=== PATIENT | female | born 1995 | race Caucasian/White ===

== ENCOUNTER 2021-12-18 11:03 | Inpatient (IN) | payer MEDICAID ==
[~2021-12-18] VITALS: Ht 175.3 cm; Wt 78.0 kg
[2021-12-18] MEDS ORDERED: DiphenhydrAMINE HCL 50 MG/ML VIAL IM ONE (13:15)
[2021-12-18] MEDS ORDERED: LORazepam 2 MG/ML VIAL IM ONE (13:15)
[2021-12-18] MEDS ORDERED: HALOPERIDOL LACTATE 5 MG/ML VIAL IM ONE (13:15)
[2021-12-18] MEDS ORDERED: ZOLPIDEM TARTRATE 10 MG TABLET PO PRN (13:15)
[2021-12-18] MEDS ORDERED: QUEtiapine FUMARATE 100 MG TABLET PO PRN (13:15)
[2021-12-18 15:24] LABS: COVID AG,FIA SOURCE NASAL SWAB
[2021-12-19 16:26] VITALS: BP 106/77
[2021-12-19] MEDS ORDERED: IBUPROFEN 400 MG TABLET PO PRN (20:30)
[2021-12-19] MEDS ORDERED: DOCUSATE SODIUM 100 MG CAPSULE PO PRN (20:30)
[2021-12-19] MEDS ORDERED: CloNIDine HCL 0.1 MG TABLET PO PRN (20:30)
[2021-12-19] MEDS ORDERED: LOPERAMIDE HCL 2 MG CAPSULE PO PRN (20:30)
[2021-12-19] MEDS ORDERED: MAGNESIUM HYDROXIDE SUSPENSION 30 ML UDCUP PO PRN (20:30)
[2021-12-19] MEDS ORDERED: GuaiFENesin/D-METHORPHAN [SUGAR-FREE] 200-20MG/10 ML SYRUP UDCUP PO PRN (20:30)
[2021-12-19] MEDS ORDERED: ALBUTEROL SULFATE HFA 90 MCG/PUFF 8 GM INHALER IH PRN (20:30)
[2021-12-19] MEDS ORDERED: ONDANSETRON HCL 4 MG TABLET PO PRN (20:30)
[2021-12-19] MEDS ORDERED: PETROLATUM,WHITE 28 GM JELLY TP PRN (20:30)
[2021-12-19] MEDS ORDERED: MAG HYDROX/AL HYDROX/SIMETH ES 30 ML SUSPENSION UDCUP PO PRN (20:30)
[2021-12-19] MEDS ORDERED: ACETAMINOPHEN 325 MG TABLET PO PRN (20:30)
[2021-12-20 00:41] VITALS: BP 102/71
[2021-12-20] MEDS: NICOTINE 14 MG/24 HOUR PATCH TD PRN (12:01)
[2021-12-20 16:28] VITALS: BP 103/60
[2021-12-21 00:34] VITALS: BP 100/68
[2021-12-21 08:16] VITALS: BP 121/74
[2021-12-21] MEDS: RisperiDONE 1 MG TABLET PO SCH ×2 (10:45→20:05)
[2021-12-21 16:13] VITALS: BP 98/69
[2021-12-21] MEDS: NICOTINE 14 MG/24 HOUR PATCH TD PRN (16:34)
[2021-12-22 00:33] VITALS: BP 102/63
[2021-12-22 08:30] VITALS: BP 145/78
[2021-12-22] MEDS: RisperiDONE 1 MG TABLET PO SCH ×2 (10:11→20:00)
[2021-12-22] MEDS: NICOTINE 14 MG/24 HOUR PATCH TD PRN (10:57)
[2021-12-22 16:14] VITALS: BP 133/94
[2021-12-22] MEDS: LORazepam 2 MG TABLET PO PRN (17:54)
[2021-12-23 00:11] VITALS: BP 130/87
[2021-12-23 08:18] VITALS: BP 119/84
[2021-12-23] MEDS: RisperiDONE 1 MG TABLET PO SCH (08:55)
[2021-12-23] MEDS: LORazepam 2 MG TABLET PO PRN (11:30)
[2021-12-23] MEDS ORDERED: RISP0.5T39 PO (12:01)
[2021-12-23] MEDS ORDERED: RISP1TAB98 PO (12:45)
== END 2021-12-23 16:50 | disposition home or self-care (01) | DRG 750 ==
LOC: EMS 11:03 → B3A 12-19 12:15
PROVIDERS: ADMIT Psychiatry & Neurology Psychiatry; ATTEND Psychiatry & Neurology Psychiatry
DX: F20.0 Paranoid schizophrenia (principal); Z59.00 Homelessness unspecified; F17.200 Nicotine dependence, unspecified, uncomplicated; F41.1 Generalized anxiety disorder; F19.10 Other psychoactive substance abuse, uncomplicated; Z20.822 Contact with and (suspected) exposure to COVID-19; Z71.6 Tobacco abuse counseling; Z78.1 Physical restraint status; Z79.899 Other long term (current) drug therapy
CPT/HCPCS: 99291; J1200; J1630; J2060

== ENCOUNTER 2022-02-21 12:01 | Inpatient (IN) | payer MEDICAID ==
[~2022-02-21] VITALS: Ht 175.3 cm; Wt 97.7 kg
[~2022-02-21 12:01] MED LIST: RISP1TAB98 PO
[2022-02-21] MEDS ORDERED: DiphenhydrAMINE HCL 50 MG/ML VIAL IM ONE (13:15)
[2022-02-21] MEDS ORDERED: MIDAZOLAM HCL 2 MG/2 ML VIAL IM ONE (13:15)
[2022-02-21] MEDS ORDERED: HALOPERIDOL LACTATE 5 MG/ML VIAL IM ONE (13:15)
[2022-02-21 14:00] LABS: COVID AG,FIA SOURCE NASOPHARYNGEAL
[2022-02-21 14:01] LABS: BASOPHILS % (AUTO) 0.7 % (0.0-2.0); EOSINOPHILS % (AUTO) 4.9 % (1.0-6.0); HEMATOCRIT 34.2 % (36-46); HEMOGLOBIN 10.9 g/dL (12.0-16.0); LYMPHOCYTES # (AUTO) 1.8 K/uL (1.0-4.8); LYMPHOCYTES % (AUTO) 19.5 % (22.0-44.0); MEAN CORPUSCULAR HEMOGLOBIN 24.5 pg (26.0-34.0); MEAN CORPUSCULAR HGB CONC 31.7 G/dL (31.0-37.0); MEAN CORPUSCULAR VOLUME 77 fL (80-100); MONOCYTES # (AUTO) 0.7 K/uL (0.1-1.0); MONOCYTES % (AUTO) 7.8 % (2.0-9.0); NEUTROPHILS # (AUTO) 6.3 K/uL (1.8-7.7); NEUTROPHILS % (AUTO) 67.1 % (40.0-70.0); PLATELET COUNT (AUTO) 197 K/uL (150-450); RED BLOOD CELL COUNT(AUTO) 4.42 MIL/uL (4.00-5.20); RED CELL DISTRIBUTION WIDTH 14.3 % (11.5-14.5)
[2022-02-21 14:22] LABS: ALANINE AMINOTRANSFERASE 32 U/L (12-78); ALBUMIN 3.4 g/dL (3.4-5.0); ALKALINE PHOSPHATASE 94 U/L (46-116); ANION GAP 11 mmol/L (8-16); ASPARTATE AMINOTRANSFERASE 19 U/L (15-37); BILIRUBIN,TOTAL 0.9 mg/dL (0.1-1.0); CALCIUM, TOTAL 8.9 mg/dL (8.8-10.5); CARBON DIOXIDE 26 mmol/L (22-29); CHLORIDE 103 mmol/L (98-107); CREATININE 0.96 mg/dL (0.60-1.30); GLOMERULAR FILTR. RATE CALC > 60 mL/min (>60); GLUCOSE,RANDOM 76 mg/dL (70-110); HCG,QUANTITATIVE < 1 mIU/mL (0-6); SODIUM SERUM 140 mmol/L (136-145); UREA NITROGEN, BLOOD 9 mg/dL (7-18)
[2022-02-21] MEDS ORDERED: ZOLPIDEM TARTRATE 10 MG TABLET PO PRN (15:00)
[2022-02-21] MEDS: POTASSIUM CHLORIDE 20 MEQ ER TABLET PO ONE ×3 (15:43→15:53)
[2022-02-21 16:09] VITALS: BP 106/65
[2022-02-21] MEDS ORDERED: NICOTINE 14 MG/24 HOUR PATCH TD PRN (16:45)
[2022-02-22] MEDS ORDERED: PETROLATUM,WHITE 28 GM JELLY TP PRN (06:45)
[2022-02-22] MEDS ORDERED: LOPERAMIDE HCL 2 MG CAPSULE PO PRN (06:45)
[2022-02-22] MEDS ORDERED: MAGNESIUM HYDROXIDE SUSPENSION 30 ML UDCUP PO PRN (06:45)
[2022-02-22] MEDS ORDERED: MAG HYDROX/AL HYDROX/SIMETH ES 30 ML SUSPENSION UDCUP PO PRN (06:45)
[2022-02-22] MEDS ORDERED: ALBUTEROL SULFATE HFA 90 MCG/PUFF 8 GM INHALER IH PRN (06:45)
[2022-02-22] MEDS ORDERED: DOCUSATE SODIUM 100 MG CAPSULE PO PRN (06:45)
[2022-02-22] MEDS ORDERED: IBUPROFEN 400 MG TABLET PO PRN (06:45)
[2022-02-22] MEDS ORDERED: ACETAMINOPHEN 325 MG TABLET PO PRN (06:45)
[2022-02-22] MEDS ORDERED: CloNIDine HCL 0.1 MG TABLET PO PRN (06:45)
[2022-02-22] MEDS ORDERED: GuaiFENesin/D-METHORPHAN [SUGAR-FREE] 200-20MG/10 ML SYRUP UDCUP PO PRN (06:45)
[2022-02-22] MEDS ORDERED: ONDANSETRON HCL 4 MG TABLET PO PRN (06:45)
[2022-02-22] MEDS: RisperiDONE 1 MG TABLET PO SCH ×2 (11:00→21:00)
[2022-02-23 08:00] VITALS: BP 130/86
[2022-02-23] MEDS: RisperiDONE 1 MG TABLET PO SCH ×2 (09:03→20:11)
[2022-02-23 16:36] VITALS: BP 127/87
[2022-02-23] MEDS: LORazepam 2 MG TABLET PO PRN (16:49)
[2022-02-23] MEDS: NICOTINE 14 MG/24 HOUR PATCH TD PRN (19:42)
[2022-02-24 09:33] VITALS: BP 121/77
[2022-02-24] MEDS: RisperiDONE 1 MG TABLET PO SCH ×2 (09:42→20:31)
[2022-02-24] MEDS: HALOPERIDOL 5 MG TABLET PO PRN (10:53)
[2022-02-24] MEDS: LORazepam 2 MG TABLET PO PRN (10:53)
[2022-02-24 16:35] VITALS: BP 123/74
[2022-02-24 23:53] VITALS: BP 127/86
[2022-02-25] MEDS: RisperiDONE 1 MG TABLET PO SCH ×2 (08:25→20:31)
[2022-02-25] MEDS: HALOPERIDOL 5 MG TABLET PO PRN (08:26)
[2022-02-25] MEDS: LORazepam 2 MG TABLET PO PRN (08:26)
[2022-02-25] MEDS: NICOTINE 14 MG/24 HOUR PATCH TD PRN (17:58)
[2022-02-26] MEDS: RisperiDONE 1 MG TABLET PO SCH ×2 (07:49→20:20)
[2022-02-26] MEDS: LORazepam 2 MG TABLET PO PRN ×2 (07:49→15:48)
[2022-02-26] MEDS: HALOPERIDOL 5 MG TABLET PO PRN ×2 (07:49→15:48)
[2022-02-26] MEDS: NICOTINE 14 MG/24 HOUR PATCH TD PRN (09:17)
[2022-02-26 09:39] VITALS: BP 111/62
[2022-02-26 16:45] VITALS: BP 108/71
[2022-02-27 08:00] VITALS: BP 153/93
[2022-02-27] MEDS: HALOPERIDOL 5 MG TABLET PO PRN ×2 (08:17→16:41)
[2022-02-27] MEDS: RisperiDONE 1 MG TABLET PO SCH ×2 (08:17→20:45)
[2022-02-27] MEDS: LORazepam 2 MG TABLET PO PRN ×2 (08:17→16:41)
[2022-02-28] MEDS: RisperiDONE 1 MG TABLET PO SCH ×2 (08:09→20:27)
[2022-02-28] MEDS: LORazepam 2 MG TABLET PO PRN ×2 (08:12→19:41)
[2022-02-28 08:25] VITALS: BP 120/54
[2022-02-28] MEDS: HALOPERIDOL 5 MG TABLET PO PRN (19:41)
[2022-03-01] MEDS: RisperiDONE 1 MG TABLET PO SCH (08:15)
[2022-03-01] MEDS: LORazepam 2 MG TABLET PO PRN ×2 (14:26→16:47)
[2022-03-01 16:08] VITALS: BP 103/67
[2022-03-01] MEDS: HALOPERIDOL 5 MG TABLET PO PRN (16:47)
[2022-03-01] MEDS: RisperiDONE 2 MG TABLET PO SCH (20:06)
[2022-03-01 20:25] VITALS: BP 118/68
[2022-03-02 07:29] LABS: COVID AG,FIA SOURCE NASAL SWAB
[2022-03-02] MEDS: LORazepam 2 MG TABLET PO PRN (10:06)
[2022-03-02] MEDS: RisperiDONE 2 MG TABLET PO SCH (10:06)
[2022-03-02] MEDS: NICOTINE 14 MG/24 HOUR PATCH TD PRN (15:17)
[2022-03-02] MEDS ORDERED: DIVALPROEX SODIUM 500 MG DR TABLET PO SCH (16:15)
[2022-03-02 16:40] VITALS: BP 125/75
== END 2022-03-02 17:20 | disposition left against medical advice (07) | DRG 750 ==
LOC: EMS 12:01 → 3EC 16:14
PROVIDERS: ADMIT Psychiatry & Neurology Child & Adolescent Psychiatry; ATTEND Psychiatry & Neurology Child & Adolescent Psychiatry
DX: F25.1 Schizoaffective disorder, depressive type (principal); Z91.19 Patient's noncompliance with other medical treatment and regimen; D64.9 Anemia, unspecified; E87.6 Hypokalemia; Z20.822 Contact with and (suspected) exposure to COVID-19; Z53.29 Procedure and treatment not carried out because of patient's decision for other reasons; F10.10 Alcohol abuse, uncomplicated; F17.200 Nicotine dependence, unspecified, uncomplicated; F19.10 Other psychoactive substance abuse, uncomplicated; Z71.41 Alcohol abuse counseling and surveillance of alcoholic; Z59.00 Homelessness unspecified
CPT/HCPCS: 80053; 84702; 85025; 99285; G0480; J1200; J1630; J2250

== ENCOUNTER 2022-04-02 07:37 | Emergency (ER) | payer MEDICAID ==
[~2022-04-02] VITALS: Ht 175.3 cm; Wt 81.8 kg
[2022-04-02 08:22] VITALS: BP 142/79
[2022-04-02 08:55] LABS: BASOPHILS % (AUTO) 0.6 % (0.0-2.0); EOSINOPHILS % (AUTO) 1.4 % (1.0-6.0); HEMATOCRIT 31.1 % (36-46); LYMPHOCYTES # (AUTO) 2.4 K/uL (1.0-4.8); MEAN CORPUSCULAR HGB CONC 32.3 G/dL (31.0-37.0); MEAN CORPUSCULAR VOLUME 77 fL (80-100); MONOCYTES # (AUTO) 0.8 K/uL (0.1-1.0); MONOCYTES % (AUTO) 8.6 % (2.0-9.0); NEUTROPHILS # (AUTO) 6.2 K/uL (1.8-7.7); NEUTROPHILS % (AUTO) 64.4 % (40.0-70.0); PLATELET COUNT (AUTO) 232 K/uL (150-450); RED BLOOD CELL COUNT(AUTO) 4.02 MIL/uL (4.00-5.20); RED CELL DISTRIBUTION WIDTH 15.6 % (11.5-14.5)
[2022-04-02 09:10] LABS: ANION GAP 3 mmol/L (8-16); CALCIUM, TOTAL 8.3 mg/dL (8.8-10.5); CARBON DIOXIDE 30 mmol/L (22-29); CHLORIDE 105 mmol/L (98-107); CREATININE 0.83 mg/dL (0.60-1.30); GLOMERULAR FILTR. RATE CALC > 60 mL/min (>60); GLUCOSE,RANDOM 94 mg/dL (70-110); POTASSIUM 4.1 mmol/L (3.5-5.1); SODIUM SERUM 138 mmol/L (136-145); UREA NITROGEN, BLOOD 9 mg/dL (7-18)
[2022-04-02 09:15] LABS: ALANINE AMINOTRANSFERASE 35 U/L (12-78); ALBUMIN 2.8 g/dL (3.4-5.0); ALKALINE PHOSPHATASE 117 U/L (46-116); ASPARTATE AMINOTRANSFERASE 13 U/L (15-37); BILIRUBIN,TOTAL 0.4 mg/dL (0.1-1.0); TOTAL PROTEIN, SERUM 6.4 g/dL (6.4-8.2)
[2022-04-02 10:41] LABS: COVID AG,FIA SOURCE NASAL SWAB
== END 2022-04-02 14:54 | disposition home or self-care (01) ==
LOC: EMS 07:37
DX: F20.0 Paranoid schizophrenia (principal); F10.20 Alcohol dependence, uncomplicated; F17.210 Nicotine dependence, cigarettes, uncomplicated; F11.90 Opioid use, unspecified, uncomplicated; F12.90 Cannabis use, unspecified, uncomplicated; F15.90 Other stimulant use, unspecified, uncomplicated; Z91.018 Allergy to other foods; Z59.00 Homelessness unspecified; Z20.822 Contact with and (suspected) exposure to COVID-19
CPT/HCPCS: 99285; 87426; 80053; 84703; 85025; 36415; G0480